=== PATIENT | male | born 1975 | race Caucasian/White ===

== ENCOUNTER 2020-03-28 18:18 | Emergency (ER) | payer OTHER ==
[~2020-03-28] VITALS: Ht 177.8 cm; Wt 88.5 kg
[2020-03-28 18:35] VITALS: BP 125/81
[2020-03-28] MEDS ORDERED: cefTRIAXone SOD 1,000 MG VL IM ONE (19:15)
== END 2020-03-28 20:13 | disposition home or self-care (01) ==
LOC: ER 18:18
DX: S63.253A Unspecified dislocation of left middle finger, initial encounter (principal); S67.193A Crushing injury of left middle finger, initial encounter; X58.XXXA Exposure to other specified factors, initial encounter; Y93.89 Activity, other specified; Y92.69 Other specified industrial and construction area as the place of occurrence of the external cause; Y99.8 Other external cause status
CPT/HCPCS: 29130; 73120; 96372; 99283; J0696